=== PATIENT | female | born 1960 | race Caucasian/White ===

== ENCOUNTER 2017-12-24 13:48 | Emergency (ER) | payer OTHER ==
--- NOTE | 2017-12-24 13:55 | CPEKG ---
Heart Rate: 73 RR Interval: 822 P-R Interval: 128 QRSD Interval: 80 QT Interval: 392 QTC Interval: 432 P Dierks: 38 QRS Dierks: 34 T Wave Dierks: 34 EKG Severity - NORMAL ECG - EKG Impression: SINUS RHYTHM Electronically Signed By: Fer Mercado 24-Dec-2017 14:02:05
--- NOTE | 2017-12-24 14:02 | EDPHY ---
H & P Time Seen by Provider: 12/24/17 13:50 HPI/ROS: CHIEF COMPLAINT: Chest pain after choking HISTORY OF PRESENT ILLNESS: Patient had dental surgery 48 hr ago and today was at the sink restaurant eating hamburger and choked on it, was short of breath and had difficulty getting it out but ultimately got the piece of hamburger out. She had which she describes as an asthma attack and panic attack while she was trying to get this piece of hamburger out of her throat. She was brought in by EMS because she still has a little bit of upper chest discomfort residual afterwards. No coughing now. Not short of breath. Does not radiate. Better than before. REVIEW OF SYSTEMS: Eye: no change in vision ENT: no sore throat Cardiac: HPI no syncope Pulmonary: Not currently coughing, not short of breath Abdomen: no vomiting, diarrhea, abdominal pain Musculoskeletal: no back pain Skin: no rash Neuro: no headache Constitutional: no fever : no urinary symptoms A comprehensive 10 point review of systems is otherwise negative aside from elements mentioned in the history of present illness. 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 Eyes: No scleral icterus. ENT, Mouth: Normal oropharynx without angioedema or foreign body. Respiratory: Normal respiratory effort, breath sounds equal, lungs are clear to auscultation. No wheezing. Cardiovascular: Regular rate and rhythm. Gastrointestinal: Abdomen is soft and non tender. Neurological: Alert, face symmetric, normal motor and sensory in extremities. Skin: Warm and dry, no rashes. Musculoskeletal: No peripheral edema. Psychiatric: Not agitated. Emergency Department course/MDM: Likely residual symptoms from her choking episode. I think that aspiration or acute asthma exacerbation or angioedema or airway obstruction are all unlikely at this time. 12-lead EKG interpreted by me; official reading is in trace master. My interpretation is sinus rhythm rate 73 without ischemic changes. (Fer Mercado) Constitutional: Initial Vital Signs Temperature (C) 36.7 C 12/24/17 14:03 Heart Rate 82 12/24/17 14:03 Respiratory Rate 16 12/24/17 14:03 Blood Pressure 169/91 H 12/24/17 14:03 O2 Sat (%) 95 12/24/17 14:03 O2 Delivery Mode Room Air Allergies/Adverse Reactions: No Known Allergies Allergy (Unverified 12/24/17 14:06) Home Medications: Medication Instructions Recorded Advair 500/50 (*) 12/24/17 Albuterol 12/24/17 Medical Decision Making - Diagnostics Imaging: I viewed and interpreted images myself - Diagnostics Imaging Results: Chest x-ray negative for visible foreign body or secondary sign such as atelectasis or collapse. (Fer Mercado) Differential Diagnosis: Differential diagnosis considered for chest pain including but not limited to myocardial ischemia, aortic dissection, pericarditis, pulmonary embolus, chest wall pain, pleural inflammation and pulmonary infectious causes. (Fer Mercado) Other Provider: 14:25 I assumed care of this patient from Dr. Mercado at shift change. Plan for further observation for one hour. Following this, she will be discharged if no residual symptoms from her choking episode remain. 15:02 Patient requests to go home. She is tolerating water and crackers without difficulty and is having no respiratory symptoms. Plan to discharge in good condition. (Benjamin Clay) Departure - Departure Disposition: Home, Routine, Self-Care Clinical Impression: Choking Condition: Good Instructions: Esophageal Foreign Body (ED) Referrals: Patient,NotPresent [Unknown] - As per Instructions [facility] ,. [Edm Groups for Call Sched] - As per Instructions
[2017-12-24 15:07] VITALS: BP 138/78
== END 2017-12-24 15:07 | disposition home or self-care (01) ==
LOC: EDUNIT#
DX: R09.89 Other specified symptoms and signs involving the circulatory and respiratory systems (principal); J45.909 Unspecified asthma, uncomplicated

== ENCOUNTER 2018-12-08 11:01 | Emergency (ER) | payer OTHER ==
--- NOTE | 2018-12-08 11:32 | EDPHY ---
HPI/HX/ROS/PE/MDM Narrative: CHIEF COMPLAINT: Asthma exacerbation, sore throat HISTORY OF PRESENT ILLNESS: The patient is a 58 y/o female with a history of asthma complaining of asthma exacerbation and sore throat. For the past week, she reports her asthma has been exacerbated by seasonal allergies. She has been taking her albuterol, duo-neb, and Advair without significant improvement in symptoms. Over the past few days, she developed a worsening sore throat. She was evaluated by her PCP yesterday and prescribed prednisone, which she started this morning. Her symptoms worsened, prompting her visit. She reports associated anxiety. She denies any other associated symptoms. She denies personal or family history of cardiac conditions. She denies recent chest x-ray. No fever, chills, palpitations, vomiting, diarrhea, urinary complaints, headache , lightheadedness. REVIEW OF SYSTEMS: A comprehensive 10 system review of systems is otherwise negative aside from elements mentioned in the history of present illness and medical decision making PAST MEDICAL HISTORY: Asthma SOCIAL HISTORY: Currently unemployed, lives in [place], nonsmoker VITAL SIGNS: Reviewed by me GENERAL: Well-developed, well-nourished, resting comfortably in no respiratory distress. No stridor. HEENT: Atraumatic. Eyes: No icterus, no injection. Mouth: moist mucous membranes. Mild posterior erythema. Neck: supple with no adenopathy. No stridor. LUNGS: Diminished breath sounds, no wheezes, rhonchi or rales. CARDIAC: Regular rate and rhythm, no rubs, murmurs or gallops. ABDOMEN: Soft, nontender, nondistended, bowel sounds normal. BACK: No CVA tenderness. EXTREMITIES: No trauma. No edema. Range of motion is normal throughout. NEURO: Alert and oriented, grossly nonfocal. SKIN: Warm and dry, no rash. PSYCHIATRIC: Normal mentation, no agitation. ED Course: Study: X-ray of the chest Indication: Asthma Results: X-ray of the chest was obtained. The results of the study are: negative for acute findings Radiologist report pending. I viewed the images myself on the PACS system. Study: X-ray of the neck Indication: Sore throat Results: X-ray of the neck was obtained. The results of the study are: normal throat, trachea, and epiglottis Radiologist report pending. I viewed the images myself on the PACS system. The patient presents for worsening asthma exacerbation, sore throat, and tightness in her chest consistent with previous asthma exacerbations. She has been taking albuterol, duonebs, Advair, and prednisone without improvement. Plan for chest x-ray, neck x-ray, EKG, and troponin. 12:00 PM - Troponin is negative. 12:10 PM - The workup has been largely negative for acute findings. Plan for discharge with instructions to use Mucinex to help clear mucus. The patient agrees to this course of action. MDM: Differential diagnosis for the patient's shortness of breath was considered including but not limited to pulmonary infectious processes, COPD exacerbation, pulmonary emboli, pulmonary edema, congestive heart failure, and cardiac causes. Differential diagnosis for the patient's sore throat was considered including but not limited to viral pharyngitis, bacterial pharyngitis, tonsillitis, tonsillar abscess, peritonsillar abscess, foreign body, epiglottitis, bacterial tracheitis. - Data Points Imaging Results: Chest X-Ray 12/08/18 11:34 Impression: Normal chest x-ray. Soft Tissue Neck X-Ray 12/08/18 11:34 Impression: 1. No significant soft tissue abnormality seen about the neck. 2. Anterior cervical fusion from C5 through C7. 3. Moderate degenerative disk disease at C4-C5 with moderate facet hypertrophy mid cervical spine more prominent on the right. Imaging: I viewed and interpreted images myself Point of Care Test Results: Chemistry 12/08/18 11:16 POC Troponin I 0.00 ng/mL ng/mL (0.00-0.08) General Time Seen by Provider: 12/08/18 11:06 Initial Vital Signs: Initial Vital Signs Temperature (C) 36.6 C 12/08/18 11:05 Heart Rate 81 12/08/18 11:05 Respiratory Rate 18 12/08/18 11:05 Blood Pressure 145/90 H 12/08/18 11:05 O2 Sat (%) 98 12/08/18 11:05 O2 Delivery Mode Room Air Allergies/Adverse Reactions: acetaminophen [From Darvocet-N] Allergy (Verified 12/08/18 11:04) propoxyphene [From Darvocet-N] Allergy (Verified 12/08/18 11:04) Home Medications: Medication Instructions Recorded Advair 500/50 (*) 12/24/17 Albuterol 12/24/17 LORazepam [Ativan] 1 mg PO Q12 PRN #8 tablet 12/08/18 Departure - Departure Disposition: Home, Routine, Self-Care Clinical Impression: Anxiety, Throat discomfort Condition: Good Instructions: Lorazepam (By mouth), Anxiety (ED) Additional Instructions: 1. Please continue to take your medications as prescribed. I recommend you also take Mucinex as directed on the box to help thin the mucus secretions and clear your throat and lungs. 2. Follow up with your primary care provider if you're not improving as expected. You should be seen within the next 2-3 days. 3. You been given a prescription for Ativan. You may use this sparingly as needed for severe anxiety associated with cough and feeling that she you can't breathe. 3. Return to the emergency room for any worsening of condition. Referrals: Patient,NotPresent [Unknown] - As per Instructions Prescriptions: LORazepam [Ativan] 1 mg PO Q12 PRN #8 tablet PRN Reason: Anxiety Report Scribed for: Margie Birmingham Report Scribed by: Margy Castaneda Date of Report: 12/08/18 Time of Report: 11:59 Physician Review and Approval Statement: Portions of this note were transcribed by a medical lab scientist. I personally performed a history, physical exam, medical decision making, and confirmed accuracy of information the transcribed note.
[2018-12-08 12:32] VITALS: BP 124/91
--- NOTE | 2018-12-12 10:21 | CPEKG ---
Test Reason : OPEN Blood Pressure : / mmHG Vent. Rate : 081 BPM Atrial Rate : 081 BPM P-R Int : 129 ms QRS Dur : 078 ms QT Int : 365 ms P-R-T Axes : 037 015 033 degrees QTc Int : 424 ms Sinus rhythm Abnormal R-wave progression, early transition Confirmed by Jess Steel ([id number]) on 12/12/2018 10:20:42 AM Referred By: PHYSICIAN ED Confirmed By:Jess Steel
== END 2018-12-08 13:10 | disposition home or self-care (01) ==
DX: F41.9 Anxiety disorder, unspecified (principal); J02.9 Acute pharyngitis, unspecified; J45.909 Unspecified asthma, uncomplicated; Z79.899 Other long term (current) drug therapy
CPT/HCPCS: 84484-ER